=== PATIENT | female | born 1990 | race African-American/Black ===

== ENCOUNTER 2017-01-18 19:58 | Emergency (ER) | payer OTHER ==
[2017-01-18 20:03] VITALS: TEMP 98.5; BMI 26.6
--- NOTE | 2017-01-18 20:42 | PDOC ---
History of Present Illness - General Chief Complaint: Back Pain Stated Complaint: BACK PAIN (16WKS ) Time Seen by Provider: 01/18/17 20:06 History Source: Patient Exam Limitations: No Limitations - History of Present Illness Initial Comments: 01/18/17 20:35 Patient is a 26-year-old female LMP 09/10/16 complaining of lower back pain since 20 minutes ago. Patient states that she lifted a couch to fix carpet and had sudden onset of 9/10 sharp pain to the lower back and lower abdomen. Denies any leakage of fluid, vaginal bleeding. PMD: Dr. Puentes PMHX: as above PSocHx: Negative EtOH, cig, drugs ALL: NKDA GENERAL/CONSTITUTIONAL: [No fever or chills. No weakness. No weight change.] HEAD, EYES, EARS, NOSE AND THROAT: [No change in vision. No ear pain or discharge. No sore throat.] CARDIOVASCULAR: [No chest pain or shortness of breath.] RESPIRATORY: [No cough, wheezing, or hemoptysis.] GASTROINTESTINAL: [No nausea, vomiting, diarrhea or constipation. No rectal bleeding.] GENITOURINARY: [No dysuria, frequency, or change in urination.] MUSCULOSKELETAL: [No joint or muscle swelling or pain. No neck (+) back pain.] SKIN AND BREASTS: [No rash or easy bruising.] NEUROLOGIC: [No headache, vertigo, loss of consciousness, or loss of sensation.] PSYCHIATRIC: [No depression or anxiety.] ENDOCRINE: [No increased thirst. No abnormal weight change.] HEMATOLOGIC/LYMPHATIC: [No anemia, easy bleeding, or history of blood clots.] ALLERGIC/IMMUNOLOGIC: [No hives or skin allergy. No latex allergy.] GENERAL: [The patient is awake, alert, and fully oriented, in no acute distress. ] HEAD: [Normal with no signs of trauma.] EYES: [Pupils equal, round and reactive to light, extraocular movements intact, sclera anicteric, conjunctiva clear.] ENT: [Ears normal, nares patent, oropharynx clear without exudates. Moist mucous membranes.] NECK: [Normal range of motion, supple without lymphadenopathy, JVD, or masses.] LUNGS: [Breath sounds equal, clear to auscultation bilaterally. No wheezes, and no crackles.] HEART: [Regular rate and rhythm, normal S1 and S2 without murmur, rub.] ABDOMEN: [Soft, (+) mild tender lower abd, normoactive bowel sounds. No guarding, no rebound. No masses.] BACK: tenderness paraspinal, nontender midline. EXTREMITIES: [Normal range of motion, no edema. No clubbing or cyanosis. No cords, erythema, or tenderness.] NEUROLOGICAL: [Cranial nerves II through XII grossly intact. Normal speech, normal gait, (+) straight leg raise to 10 degrees.] PSYCH: [Normal mood, normal affect.] SKIN: [Warm, Dry, normal turgor, no rashes or lesions noted.] Past History - Past Medical History Allergies/Adverse Reactions: Allergies Allergy/AdvReac Type Severity Reaction Status Date / Time No Known Allergies Allergy Verified 01/18/17 20:00 Home Medications: Ambulatory Orders NK [No Known Home Medication] 01/18/17 COPD: No - Reproductive History Is Patient Now?: Yes (#): 2 Para: 1 - Suicide/Smoking/Psychosocial Hx Smoking History: Never smoked Hx Alcohol Use: No Drug/Substance Use Hx: No Substance Use Type: None *Physical Exam - Vital Signs Last Vital Signs Temp Pulse Resp BP Pulse Ox 98.5 F 113 H 20 120/74 100 01/18/17 20:00 01/18/17 20:00 01/18/17 20:00 01/18/17 20:00 01/18/17 20:00 Medical Decision Making - Medical Decision Making 01/18/17 20:42 Patient is a 26-year-old female LMP 09/10/16 complaining of lower back pain since 20 minutes ago after lifting a couch. percocet and lidoderm patch bedside US. (+) movement, FH 164, Patient feeling better repeat vs I discussed the physical exam findings, ancillary test results and final diagnoses with the patient. I answered all of the patient's questions. The patient was satisfied with the care received and felt comfortable with the discharge plan and treatment plan. The Patient agrees to follow up with the primary care physician within 24-72 hours. *DC/Admit/Observation/Transfer Diagnosis at time of Disposition: Low back strain Qualifiers: Encounter type: initial encounter Qualified Code(s): S39.012A - Strain of muscle, fascia and tendon of lower back, initial encounter - Discharge Dispostion Disposition: HOME Condition at time of disposition: Stable - Referrals Referrals: STAFF,NOT ON [Primary Care Provider] - - Patient Instructions Printed Discharge Instructions: DI for Low Back Pain Additional Instructions: Your Discharge Instructions: You must call primary care physician within 24 hours to arrange follow-up. Return to the Emergency Department with any new, persistent or worsening symptoms, for fever, chills, SOB, dizziness or any other concerning changes that may occur. Continue Tylenol every 4 hours as needed while you are in pain. Warm compress to the lower back, rest to the back. - Post Discharge Activity Forms/Work/School Notes: Back to Work
[2017-01-18] MEDS ORDERED: LIDOCAINE 5% TOPICAL PATCH TP ONE (21:11)
[2017-01-18] MEDS ORDERED: LIDOCAINE 5% TOPICAL PATCH ONE (21:15)
[2017-01-18 21:57] VITALS: BP 128/64; PULSE 98
[2017-01-18] MEDS ORDERED: LIDOCAINE PATCH REMOVAL MC SCH (22:00)
== END 2017-01-18 22:09 | disposition home or self-care (01) ==
LOC: JER 19:58
DX: R10.30 Lower abdominal pain, unspecified (principal); O26.892 Other specified pregnancy related conditions, second trimester; Z3A.16 16 weeks gestation of pregnancy; S39.012A Strain of muscle, fascia and tendon of lower back, initial encounter; X58.XXXA Exposure to other specified factors, initial encounter; Y93.89 Activity, other specified; Y92.9 Unspecified place or not applicable
CPT/HCPCS: 99282-25

== ENCOUNTER 2017-06-12 11:25 | Inpatient (IN) | payer OTHER ==
[2017-06-12] MEDS ORDERED: DEXTROSE 5%-LACTATED RINGERS 1,000 ML IV SCH ×3 (12:15→15:15)
[2017-06-12] MEDS ORDERED: PROMETHAZINE HCL 25 MG/1 ML VIAL IVPB ONE (13:55)
[2017-06-12] MEDS ORDERED: BUTORPHANOL TARTRATE 1 MG/ML VIAL IVPB ONE (13:55)
[2017-06-12] MEDS ORDERED: BUTORPHANOL TARTRATE 1 MG/ML VIAL ONE ×4 (13:58→16:51)
[2017-06-12] MEDS ORDERED: PROMETHAZINE HCL 25 MG/1 ML VIAL ONE ×2 (13:58→16:51)
[2017-06-12 14:38] LABS: BASO % 0.3 % (0-2.0); EOS % 0.1 % (0-4.5); HEMOGLOBIN 11.9 GM/dL (10.7-15.3); LYMPH % 16.8 % (8-40); MCH 28.2 pg (25.7-33.7); MEAN CELL VOLUME 82.9 fl (80-96); MEAN PLT VOLUME 8.3 fl (7.5-11.1); NEUT % 74.8 % (42.8-82.8); PLATELET COUNT 200 K/MM3 (134-434); RBC 4.22 M/mm3 (3.60-5.2); RDW 14.6 % (11.6-15.6)
[2017-06-12 14:58] LABS: INR 0.99 (0.82-1.09); PROTHROMBIN TIME (PATIENT) 11.2 SEC (9.7-13.0)
[2017-06-12 15:00] LABS: ANION GAP 6 (8-16); BLOOD UREA NITROGEN 7 mg/dL (7-18); CALCIUM 9.2 mg/dL (8.5-10.1); CHLORIDE 104 mmol/L (98-107); CO2 27 mmol/L (21-32); CREATININE 0.5 mg/dL (0.55-1.02); GLUCOSE,RANDOM 107 mg/dL (74-106); POTASSIUM 3.9 mmol/L (3.5-5.1); SODIUM 137 mmol/L (136-145)
[2017-06-12 15:01] LABS: ACTIVATED PTT 28.7 SECONDS (26.9-34.4)
[2017-06-12] MEDS ORDERED: PROMETHAZINE HCL 25 MG/1 ML VIAL IVPUSH ONE (17:00)
[2017-06-12] MEDS ORDERED: BUTORPHANOL TARTRATE 1 MG/ML VIAL IVPUSH ONE (17:00)
--- NOTE | 2017-06-12 19:34 | HP ---
Past Medical History - Admission Chief Complaint: Labor pain History of Present Illness: 27 yo @ 39 weeks gestation, EDC 06/17/17, presents to L&D c/o labor pain. She denies any vaginal bleeding nor rupture of membrane. History Source: Patient Limitations to Obtaining History: No Limitations - Past Medical History ...: 2 ...Para: 1 ...LMP: 09/10/16 ... Weeks Gestation by Dates: 39.2 ...EDC by Dates: 06/17/17 ...EDC by Sono: 06/17/17 - Past Surgical History Past Surgical History: Yes: None Hx Myomectomy: No Hx Transabdominal Cerclage: No - Smoking History Smoking history: Never smoked - Alcohol/Substance Use Hx Alcohol Use: No - Social History Usual Living Arrangement: Yes: Alone History of Recent Travel: No Home Medications - Allergies Allergies/Adverse Reactions: Allergies Allergy/AdvReac Type Severity Reaction Status Date / Time No Known Allergies Allergy Verified 06/12/17 12:20 - Home Medications Home Medications: Ambulatory Orders NK [No Known Home Medication] 01/18/17 Vit/Iron Fum/Folic AC [ Tablet] 1 tab PO DAILY 06/12/17 Family Disease History - Family Disease History Family History: Unremarkable Review of Systems - Review of Systems Constitutional: reports: No Symptoms Eyes: reports: No Symptoms HENT: reports: No Symptoms Neck: reports: No Symptoms Cardiovascular: reports: No Symptoms Respiratory: reports: No Symptoms Gastrointestinal: reports: No Symptoms Genitourinary: reports: Pain Neurological: reports: No Symptoms Psychiatric: reports: No Symptoms Pain Intensity: 8 Physical Exam - Maternity Vital Signs: Vital Signs Temperature 98.9 F 06/12/17 18:04 Pulse Rate 96 H 06/12/17 18:04 Respiratory Rate 20 06/12/17 18:04 Blood Pressure 116/66 06/12/17 18:04 O2 Sat by Pulse Oximetry (%) Constitutional: Yes: Well Nourished Eyes: Yes: Conjunctiva Clear HENT: Yes: Atraumatic Neck: Yes: Supple Cardiovascular: Yes: Regular Rate and Rhythm Lungs: Clear to auscultation - Abdominal Exam/OB Number of Fetuses: Single Presentation: Vertex Contractions: Yes - Vaginal Exam/OB Dilatation (cm): 2 Effacement (%): 90 Amniotic Membrane Status: Intact Station: -1 - Physical Exam ...Motor Strength: WNL Psychiatric: Yes: Alert, Oriented - Labs Lab Results: CBC, BMP 06/12/17 14:25 06/12/17 14:25 Problem List - Problems (1) Pain during labor Code(s): O99.89 - OTH DISEASES AND CONDITIONS COMPL PREG/CHLDBRTH; R52 - PAIN, UNSPECIFIED Assessment/Plan Labor pain 39 weeks gestation Admit to L&D Analgesia as needed Anticipate
[2017-06-12] MEDS ORDERED: OXYTOCIN 20 UNITS in 0.9% NS 20 UNIT/1,000 ML INFUS.BAG IV ONE ×2 (20:10→21:00)
[2017-06-12] MEDS ORDERED: BENZOCAINE 20% 57 GM BOTTLE TP PRN (20:18)
[2017-06-12] MEDS ORDERED: METHYLERGONOVINE MALEATE 0.2 MG/1 ML AMP IM PRN (20:18)
[2017-06-12] MEDS ORDERED: BENZOCAINE 28 GM HEMORRHOIDAL OINTMENT TP PRN (20:18)
[2017-06-12] MEDS ORDERED: WITCH HAZEL 50% (TUCKS) 40 PAD/JAR PAD TP PRN (20:18)
[2017-06-12] MEDS ORDERED: BISACODYL 10 MG SUPP.RECT RC PRN (20:18)
[2017-06-12] MEDS ORDERED: ACETAMINOPHEN 325 MG TABLET (FP) PO PRN (20:18)
--- NOTE | 2017-06-12 20:21 | PN ---
Delivery - Delivery Vaginal Delivery: Spontaneous Type of Anesthesia: Local Episiotomy/Laceration: 1st degree EBL (cc): 300 Remarks - Remarks Remarks: Normal spontaneous vaginal delivery of a live infant girl over first degree laceration. Nose / Oropharynx suctioned @ perineum. Cord clamped and cut. Placenta expelled spontaneously intact. Laceration repaired with 2.0 Biosyn
[2017-06-12] MEDS ORDERED: OXYTOCIN 20 UNITS in 0.9% NS 20 UNIT/1,000 ML INFUS.BAG IV SCH (20:45)
[2017-06-12] MEDS ORDERED: IBUPROFEN 600 MG TABLET (FP) PO ONE (21:00)
[2017-06-12] MEDS: IBUPROFEN 600 MG TABLET (FP) PO PRN (23:00)
--- NOTE | 2017-06-13 02:17 | PN ---
Post Progress Note - Subjective Subjective: 27 yo Para 2 status post vaginal delivery, seen and evaluated. Doing well. Post Day: 1 Type of Delivery: Vital Signs: Vital Signs Temperature 98.7 F 06/13/17 02:00 Pulse Rate 101 H 06/13/17 02:00 Respiratory Rate 20 06/13/17 02:00 Blood Pressure 134/73 06/13/17 02:00 O2 Sat by Pulse Oximetry (%) Breast Exam: Yes: Soft Uterus: Yes: Fundus Firm Abdomen/GI: Yes: Abdomen soft, Tolerating PO Lochia: Yes: Rubra Lochia, amount: Moderate Extremities: Yes: Calves non-tender Perineum: Yes: Laceration (healing) Activity: Ambulating - Labs Labs: CBC WBC 5.0 K/mm3 (4.0-10.0) 06/12/17 14:25 RBC 4.22 M/mm3 (3.60-5.2) 06/12/17 14:25 Hgb 11.9 GM/dL (10.7-15.3) 06/12/17 14:25 Hct 35.0 % (32.4-45.2) 06/12/17 14:25 MCV 82.9 fl (80-96) 06/12/17 14:25 MCH 28.2 pg (25.7-33.7) 06/12/17 14:25 MCHC 34.0 g/dl (32.0-36.0) 06/12/17 14:25 RDW 14.6 % (11.6-15.6) 06/12/17 14:25 Plt Count 200 K/MM3 (134-434) 06/12/17 14:25 MPV 8.3 fl (7.5-11.1) 06/12/17 14:25 Neutrophils % 74.8 % (42.8-82.8) 06/12/17 14:25 Lymphocytes % 16.8 % (8-40) 06/12/17 14:25 Monocytes % 8.0 % (3.8-10.2) 06/12/17 14:25 Eosinophils % 0.1 % (0-4.5) 06/12/17 14:25 Basophils % 0.3 % (0-2.0) 06/12/17 14:25 Problem List - Problems (1) Pain during labor Code(s): O99.89 - OTH DISEASES AND CONDITIONS COMPL PREG/CHLDBRTH; R52 - PAIN, UNSPECIFIED (2) Status post normal vaginal delivery Code(s): EOH1615 - Assessment/Plan Status post vaginal delivery Stable Continue routine care
[2017-06-13 06:53] LABS: BASO % 0.2 % (0-2.0); EOS % 0.5 % (0-4.5); HEMOGLOBIN 11.8 GM/dL (10.7-15.3); LYMPH % 26.2 % (8-40); MCH 28.7 pg (25.7-33.7); MCHC 34.6 g/dl (32.0-36.0); MEAN PLT VOLUME 9.2 fl (7.5-11.1); MONO % 8.1 % (3.8-10.2); PLATELET COUNT 231 K/MM3 (134-434); RDW 14.9 % (11.6-15.6); WHITE BLOOD COUNT 7.7 K/mm3 (4.0-10.0)
[2017-06-13 07:05] VITALS: BMI 30.4
[2017-06-13] MEDS ORDERED: IBUPROFEN 600 MG TABLET (FP) PO ONE (07:29)
[2017-06-13] MEDS ORDERED: ACETAMINOPHEN 325 MG TABLET (FP) ONE (07:29)
[2017-06-13] MEDS: IBUPROFEN 600 MG TABLET (FP) PO PRN (09:00)
[2017-06-13] MEDS: FERROUS SO4 325 MG TABLET (FP) PO SCH ×3 (09:00→17:00)
[2017-06-13] MEDS: PRENATAL VITAMINS W/ FOLIC ACID TABLET (FP) PO SCH (09:28)
[2017-06-13] MEDS ORDERED: FLU VACCINE QUAD 60 MCG/0.5 ML (MDV 17-18) IM ONE (10:30)
[2017-06-13] MEDS ORDERED: FLU VACC QS2017-18 36MOS UP/PF 60 MCG/0.5 ML SYRINGE IM ONE (12:00)
[2017-06-13] MEDS ORDERED: SENNOSIDES/DOCUSATE COMBO (SENNA PLUS) TABLET (UD) PO PRN (22:00)
--- NOTE | 2017-06-14 07:44 | DS ---
Physical Exam-[employer] Vital Signs: Vital Signs Temperature 97.9 F 06/13/17 22:00 Pulse Rate 98 H 06/13/17 22:00 Respiratory Rate 18 06/13/17 22:00 Blood Pressure 123/66 06/13/17 22:00 O2 Sat by Pulse Oximetry (%) Constitutional: Yes: Well Nourished Eyes: Yes: Conjunctiva Clear HENT: Yes: Atraumatic Neck: Yes: Supple Cardiovascular: Yes: Regular Rate and Rhythm Respiratory: Yes: Regular Gastrointestinal: Yes: Normal Bowel Sounds Vaginal Exam: Yes: Normal Cervix: Yes: Normal Uterus: Yes: Firm ....Post : Yes: Uterus firm, Moderate lochia serosa Breast(s): Yes: WNL Neurological: Yes: Alert, Oriented ...Motor Strength: WNL Psychiatric: Yes: Alert, Oriented Labs: CBC, BMP 06/13/17 06:00 06/12/17 14:25 Delivery - Delivery Vaginal Delivery: Spontaneous Type of Anesthesia: Local Episiotomy/Laceration: 1st degree EBL (cc): 300 Delivery, Single - Stages of Labor Date 1st Stage Initiatied: 06/12/17 Date 2nd Stage Initiated: 06/12/17 Time 2nd Stage Initiated: 19:45 Date of Delivery: 06/12/17 Time of Delivery: 20:04 Time Placenta Delivered: 20:10 - Condition of Infant Cost Engineer/[employer] Official Present: Yes Name: Db Martinez Infant Gender: Female Weight: 7 lb 3 oz Position: Right, OA Total Hours ROM (Hrs/Mins): 20M - 1 Minute Total Score: 9 5 Minutes Total Score: 9 - Feeding Plan Initial Plan: Exclusive throughout hospitalization Discharge Summary Reason For Visit: LABOR Current Active Problems Pain during labor (Acute) Status post normal vaginal delivery (Acute) Procedures: Principal: Normal spontaneus vaginal delivery Hospital Course: Routine care Condition: Good - Instructions Diet, Activity, Other Instructions: Regular diet No douching, no sexual intercourse x 6 weeks F/U in clinic in 6 weeks Referrals: [facility] [Outside] Disposition: HOME - Home Medications Comprehensive Discharge Medication List: Ambulatory Orders NK [No Known Home Medication] 01/18/17 Vit/Iron Fum/Folic AC [ Tablet] 1 tab PO DAILY 06/12/17
[2017-06-14 08:41] VITALS: BP 121/48; PULSE 100; TEMP 98.1
[2017-06-14] MEDS: FERROUS SO4 325 MG TABLET (FP) PO SCH (09:10)
[2017-06-14] MEDS: PRENATAL VITAMINS W/ FOLIC ACID TABLET (FP) PO SCH (09:10)
== END 2017-06-14 11:40 | disposition home or self-care (01) | DRG 560 ==
LOC: JDEL 11:25 → JLDR 13:55 → J3W 06-13 11:26
PROVIDERS: ADMIT Obstetrics & Gynecology; ATTEND Obstetrics & Gynecology
PROC: 10E0XZZ Delivery of Products of Conception, External Approach (ICD-10-PCS; principal; 2017-06-12)
PROC: 0HQ9XZZ Repair Perineum Skin, External Approach (ICD-10-PCS; 2017-06-12)
DX: O70.0 First degree perineal laceration during delivery (principal); Z3A.39 39 weeks gestation of pregnancy; Z37.0 Single live birth
CPT/HCPCS: 36415; 59409; 80048; 85025; 85610; 85730; 86593; 86850; 86900; 86901